=== PATIENT | male | born 1970 | race Caucasian/White ===

== ENCOUNTER 2017-12-31 22:59 | Emergency (ER) | payer SELFPAY ==
[~2017-12-31] VITALS: Ht 180.3 cm; Wt 92.1 kg
[2017-12-31 23:01] VITALS: Ht 180.3 cm; Wt 92.1 kg
[2018-01-01 00:42] VITALS: BP 127/75
== END 2018-01-01 00:42 | disposition home or self-care (01) ==
LOC: ED 22:59
DX: N43.3 Hydrocele, unspecified (principal)